=== PATIENT | male | born 1980 | race Caucasian/White ===

== ENCOUNTER 2016-04-22 08:12 | Emergency (ER) | payer OTHER ==
[~2016-04-22] VITALS: Ht 180.3 cm; Wt 113.6 kg
[2016-04-22 08:14] VITALS: BP 124/73; PULSE 94; RESP 15; TEMP 97.9; O2SAT 96
--- NOTE | 2016-04-22 09:17 | PD ---
HPI Chief Complaint: Skin Problem Time Seen by Provider: 09:17 Travel History International Travel<30 days: No Contact w/Intl Traveler<30days: No Traveled to known affect area: No History of Present Illness HPI 35-year-old male presents to the emergency Department with complaint of a rash all over his body that started at approximately 7 AM this morning. Reports rash is very itchy. He said he was sitting on the toilet having a bowel movement when he felt a sudden warmth from his stomach up into his face and his head. Says his eyes turned red. He then noticed a generalized red rash to his body. He denies airway edema, stridor, wheezing. Denies new lotions, detergents, soaps, medications, foods, environmental exposures. Said the rash scared him and felt a little short of breath at the time, but denies shortness of breath now. He had another bowel movement afterwards which was diarrhea. Reports both of his hands feel swollen. Denies chest pain, shortness of breath , abdominal pain, nausea, vomiting. Denies fever, chills. Denies recent illness to include cough, nasal congestion, sore throat, ear pain. Has not taken any medications or tried any treatments to alleviate his symptoms. No known aggravating or relieving factors. Allergies to Toradol. Does not have primary care provider. Says he is prediabetic but does not take medications for diabetes.. No other modifying factors or associated signs and symptoms. [facility] Social History Tobacco Use: No Allergies-Medications (Allergen,Severity, Reaction): Coded Allergies: Toradol (Verified Allergy, Intermediate, RASH TO CHEST, 04/22/16) Reported Meds & Prescriptions Reported Meds & Active Scripts Active Zantac 150 Maximum Strength (Ranitidine HCl) 150 Mg Tab 150 Mg PO BID 7 Days Deltasone (Prednisone) 20 Mg Tab 40 Mg PO DAILY 4 Days start 04/23/2016 Review of Systems Except as stated in HPI: all other systems reviewed are Neg Physical Exam Narrative GENERAL: Well-nourished, well-developed male patient, in no acute distress; afebrile, nontoxic-appearing SKIN: Warm and dry. Generalized, erythemic, nonraised rash to chest, abdomen, back, bilateral upper and lower extremities. HEAD: Atraumatic. Normocephalic. EYES: Pupils equal and round at 3 mm with brisk reaction. No scleral icterus. No injection or drainage. PERRLA. ENT: Mucosa pink and moist. No erythema or exudates. No uvular edema. No uvular , palatal, or tonsillar deviation. Airway patent. EARS: Bilateral pinnae and external canals appear within normal limits. Bilateral tympanic membranes without erythema, dullness or perforation. NECK: Trachea midline. No lymphadenopathy. CARDIOVASCULAR: Regular rate and rhythm. No murmur appreciated. RESPIRATORY: No accessory muscle use. Clear to auscultation. Breath sounds equal bilaterally. GASTROINTESTINAL: Abdomen soft, non-tender, nondistended. Hepatic and splenic margins not palpable. Bowel sounds are active 4 quadrants. MUSCULOSKELETAL: No obvious deformities. No clubbing. No cyanosis. No edema. NEUROLOGICAL: Awake and alert. Oriented 3. No obvious cranial nerve deficits. Motor grossly within normal limits. Normal speech. Moves all extremities. 5/5 strength to all extremities. PSYCHIATRIC: Appropriate mood and affect; insight and judgment normal. Data Data Last Documented VS Vital Signs Date Time Temp Pulse Resp B/P Pulse Ox O2 Delivery O2 Flow Rate FiO2 04/22/16 08:14 97.9 94 15 124/73 96 Orders Prednisone (Deltasone) (04/22/16 09:30) Ranitidine (Zantac) (04/22/16 09:30) MDM Medical Decision Making Medical Screen Exam Complete: Yes Emergency Medical Condition: Yes Medical Record Reviewed: Yes Differential Diagnosis Allergic reaction, contact dermatitis, nonspecific rash Narrative Course 35-year-old male with a generalized erythematous, nonraised, itchy rash to his entire body, excluding his face. He is in no acute distress and his oxygen saturation is 96% on room air. He is without retractions or tachypnea. Denies new exposures. Denies recent illness. Denies fever, chills, nausea, vomiting. He is afebrile in ER. Patient is driving, so I recommended for him to take Benadryl once he gets home. Zantac and Deltasone administered in the ER. Zantac and Deltasone prescribed for home. Instructed patient to follow up with dermatology and structural mill supervisor as needed. Patient is medically cleared and stable for discharge. Discussed reasons to return to the emergency department. Instructed patient to follow up with primary care provider. Patient agrees with treatment plan. The patients vital signs are stable and the patient is stable for outpatient follow-up and treatment. Patient discharged home, stable and in no acute distress. Diagnosis Primary Impression: Rash and nonspecific skin eruption Referrals: Business Systems Lead Primary Care Physician Patient Instructions: Acute Rash (ED), General Allergic Reaction (ED), General Instructions Departure Forms: Tests/Procedures, Work Release Enter return to work date: Apr 23, 2016 Additional Instructions: Take prednisone as prescribed [id number] topicals to reduce itch Benadryl as directed and as needed to reduce itch Follow-up with your primary care provider Follow-up with dermatology as needed Follow-up with structural mill supervisor Return to the emergency department immediately Med/Other Pt SpecificInfo: Prescription(s) given Scripts Ranitidine (Zantac 150 Maximum Strength)150 Mg [id number] Mg PO BID 7 Days Prov:Concepcion Villafana 04/22/16 Prednisone (Deltasone)20 Mg Tab40 Mg PO DAILY 4 Days Ref 0 start 04/23/2016 Prov:Concepcion Villafana 04/22/16 Disposition: 01 DISCHARGE HOME Condition: Stable Concepcion Villafana Apr 22, 2016 09:17
[2016-04-22] MEDS ORDERED: predniSONE 20 MG TAB PO ONE (09:30)
[2016-04-22] MEDS ORDERED: RANITIDINE HCL 150 MG TAB PO ONE (09:30)
[2016-04-22] MEDS ORDERED: PRED-503 PO (09:34)
[2016-04-22] MEDS ORDERED: ZANTTAB PO (09:34)
== END 2016-04-22 10:15 | disposition home or self-care (01) ==
LOC: NEPB 08:12
DX: R21 Rash and other nonspecific skin eruption (principal); R19.7 Diarrhea, unspecified; R73.03 Prediabetes
CPT/HCPCS: 99283; J7512